=== PATIENT | female | born 1945 | race Caucasian/White ===

== ENCOUNTER → 2021-01-01 18:06 | Outpatient (CLI) | payer MEDICARE, SELFPAY ==
--- NOTE | ~2021-01-01 | XR_ITS ---
EXAMINATION: XR chest 2V DATE: 01/01/2021 18:27 INDICATION: Melanoma of back. TECHNIQUE: Frontal and lateral views of the chest were obtained. COMPARISON: None. FINDINGS: The chest demonstrates clear lungs without pneumonia, pleural effusion, or pneumothorax. Th e heart size is normal. A closure device overlies the heart. IMPRESSION: 1. No acute cardiopulmonary disease. Reviewed, dictated and finalized at location A.
== END ==
PROVIDERS: Visit Provider Surgery
DX: C43.59 Malignant melanoma of other part of trunk (principal)
CPT/HCPCS: 71046

== ENCOUNTER 2025-01-16 11:48 | Outpatient (CLI) | payer MEDICARE, SELFPAY ==
--- NOTE | ~2025-01-16 | XR_ITS ---
EXAM/ PROCEDURE: XR shoulder RT min 2V - 01/16/2025 12:07 CDT HISTORY: 79 years old Female with Chronic right shoulder pain COMPARISON: None available TECHNIQUE: Three view(s) FINDINGS/ IMPRESSION: There are no fractures or dislocations.Joint space narrowing, subchondral sclerosis, subchondral cyst formation and osteophyte formation, compatible with mild osteoarthritis. Reviewed, dictated and finalized at location A.
== END 2025-01-16 11:49 | disposition home or self-care (01) ==
PROVIDERS: Visit Provider Family Medicine
DX: M25.511 Pain in right shoulder (principal); G89.29 Other chronic pain
CPT/HCPCS: 73030

== ENCOUNTER 2025-03-05 12:48 | Outpatient (CLI) | payer MEDICARE, SELFPAY ==
--- NOTE | ~2025-03-05 | XR_ITS ---
EXAMINATION: XR chest 2V, 03/05/2025 14:05 CDT HISTORY: FALL, SEQUELA, fell 2018 heart surgery COMPARISON: No comparisons available. Technique: 2 views obtained. Findings: The lungs are clear, no effusion. No pneumothorax. Heart is normal size. Mediastinal and hilar contours are within normal limits. Bony thorax no acute abnormality. Impression: No acute cardiopulmonary abnormality. Reviewed, dictated and finalized at location P. Impression: No acute cardiopulmonary abnormality.
--- NOTE | ~2025-03-05 | XR_ITS ---
XR thoracic spine 2V Indication: FALL, SEQUELA, fell 2018 heart surgery Comparison: None Findings: Moderate loss of vertebral height, no fracture or subluxation. Moderate loss of disc height throughout. Soft tissues unremarkable Impression: No acute abnormality. Reviewed, dictated and finalized at location P. Impression: No acute abnormality.
--- NOTE | ~2025-03-05 | XR_ITS ---
XR_CERV2-3V_CR Indication: FALL, SEQUELA, fell 2018 heart surgery Comparison: None Findings: Grade 1 anterolisthesis of C3 on C4, no fracture. Severe loss of disc height C4-5 C5-6 and C6-7. Soft tissues unremarkable Impression: No acute abnormality. Reviewed, dictated and finalized at location P. Impression: No acute abnormality.
== END 2025-03-05 12:49 | disposition home or self-care (01) ==
DX: M43.12 Spondylolisthesis, cervical region (principal); M50.021 Cervical disc disorder at C4-C5 level with myelopathy; M50.022 Cervical disc disorder at C5-C6 level with myelopathy; M50.023 Cervical disc disorder at C6-C7 level with myelopathy
CPT/HCPCS: 71046; 72040; 72070

== ENCOUNTER 2025-05-07 09:02 | Outpatient (CLI) | payer MEDICARE, SELFPAY ==
--- NOTE | ~2025-05-07 | XR_ITS ---
EXAMINATION: XR chest 2V, 05/07/2025 9:17 COMMUNITY DEVELOPMENT TECHNICIAN HISTORY: Fall COMPARISON: No comparisons available. Technique: 2 views obtained. Findings: The lungs are clear, no effusion. No pneumothorax. Heart is normal size. Mediastinal and hilar contours are within normal limits. Bony thorax no acute abnormality. Impression: No acute cardiopulmonary abnormality. Reviewed, dictated and finalized at location P. UNITY DEVELOPMENT TECHNICIAN Impression: No acute cardiopulmonary abnormality.
--- NOTE | ~2025-05-07 | XR_ITS ---
EXAMINATION: XR shoulder RT min 2V, 05/07/2025 9:17 PRESCHOOL ASSISTANT PRINCIPAL HISTORY: Chronic R shoulder pain COMPARISON: No comparisons available. Findings: No acute fracture or malalignment. No significant degenerative changes. Soft tissues unremarkable. Impression: No acute fracture or malalignment. Reviewed, dictated and finalized at location P. CHOOL ASSISTANT PRINCIPAL Impression: No acute fracture or malalignment.
--- NOTE | ~2025-05-07 | XR_ITS ---
XR thoracic spine 2V Indication: Fall Comparison: None Findings: The vertebral heights are intact. No fracture or subluxation. The disc heights are intact. Soft tissues unremarkable Impression: No acute abnormality. Reviewed, dictated and finalized at location P. CARRIER AND CLERK Impression: No acute abnormality.
--- NOTE | ~2025-05-07 | XR_ITS ---
XR_CERV2-3V_CR Indication: Fall Comparison: None Findings: Grade 1 anterolisthesis of C3 on C4, no fracture identified. Moderate to severe loss of disc height at C4-5 C5-6 and C6-7. Soft tissues unremarkable Impression: No acute abnormality. Reviewed, dictated and finalized at location P. AL EFFECTS ARTIST Impression: No acute abnormality.
== END 2025-05-07 09:03 | disposition home or self-care (01) ==
DX: M43.12 Spondylolisthesis, cervical region (principal); R29.890 Loss of height; G89.29 Other chronic pain; M25.511 Pain in right shoulder; W19.XXXS Unspecified fall, sequela
CPT/HCPCS: 71046; 72040; 72070; 73030

== ENCOUNTER 2025-05-17 10:40 | Outpatient (CLI) | payer MEDICARE, SELFPAY ==
--- NOTE | ~2025-05-17 | CT_ITS ---
EXAM/PROCEDURE: CT foot RT wo con HISTORY: right foot pain COMPARISON: None available. TECHNIQUE: Right foot CT without contrast FINDINGS: Patient status post tarsometatarsal fusion involving the medial and and middle cuneiform bones, with the bases of the first and second metatarsal bones. No hardware failure, fracture or loosening seen. 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 Claw toe deformity also noted. No drainable fluid collection or suspicious mass seen. No discrete cortical erosion seen to confirm osteomyelitis IMPRESSION: Postsurgical changes in the midfoot, as well as degenerative changes in the midfoot and forefoot. No drainable fluid collection, large mass or gross osteomyelitis. If abscess or osteomyelitis is a clinical concern, correlation with follow-up MRI or alternatively, contrast-enhanced CT of the left foot may provide additional beneficial information.. Reviewed, dictated and finalized at location A. ER MIXER IMPRESSION: Postsurgical changes in the midfoot, as well as degenerative changes in the mid foot and forefoot. No drainable fluid collection, large mass or gross osteomyel itis. If abscess or osteomyelitis is a clinical concern, correlation with follo w-up MRI or alternatively, contrast-enhanced CT of the left foot may provide ad ditional beneficial information..
--- OUTSIDE RECORDS SUMMARY | 2025-05-17 11:49 | XMS_ITS | Clinical Summary ---
Author Organization [facility] Address [address] [place] [id number] Care Team Providers Care Gun Barrel Finisher Name Role Phone Edy Campos MD Primary Care Provider Unavailab le Encounters Date Type Department Care Team Description 03/28/2025 External Device Data ST[facility] ABSTRACTION Provider, Abstract 03/27/2025 External Device Data [facility] ABSTRACTION Provider, Abstract 03/20/2025 External Device Data ST[facility] ABSTRACTION Provider, Abstract from Last 3 Months Social History Tobacco Use Types Packs/Day Years Used Date Smoking Tobacco: Never Assessed Comments Unknown Sex and Gender Information Value Date Recorded Sex Assigned at Not on file Legal Sex Female 4:24 AM ADMINISTRATOR HEALTH CARE FACILITY Gender Identity Not on file Sexual Orientation Not on file Plan of Treatment Health Maintenance Due Date Last Done Comments RSV VACCINE (60+ or ) (1 - 1-dose 75+ series) 2021 INFLUENZA VACCINE (#1) 2024 4, 03/09/2023, 01/29/2023, Additional history exists COVID-19 Vaccine (2024-2 6 season) 2025 03/09/2024, 08/12/2020, 07/22/2020 OSTEOPOROSIS SCREENING 10/30/2027 3, 10/29/2022, 06/24/2015, Additional history exists DTAP/TDAP/TD VACCINES (3 - T d or Tdap) 09/29/2028 09/29/2018, 05/31/2008 PNEUMOCOCCAL VACCINE 50+ YEARS Completed 01/17/2016 , 05/12/2012 ZOSTER VACCINE Completed 06/07/2019, 03/01, 09/29/2018, Additional history exists Insurance MEDICARE PART A AND B [facility] Care Teams Gun Barrel Finisher Relationship Specialty Start Date End Date Edy Campos MD PCP - General 05/16/15
--- OUTSIDE RECORDS SUMMARY | 2025-05-17 11:49 | XMS_ITS | Encounter Summary ---
Author Organization [facility] Health Address [address] [facility] [place] [address] Care Team Providers Care Mink Farmer Name Role Phone Osei Toth MD Unavailable [phone] Himanshu Cook MD Primary Care Provider [phone] Jian Srivastava MD Unavailable [phone] Edy Zavaleta MD Unavailable [phone] Kalie Davis MD Unavailable [phone] Tu Lyman MD Unavailable Sam Garcia MD Unavailable Himanshu Cook MD Primary Care Provider [phone] Reason for Visit * Reason Onset Date Comments General 04/19/2018 Encounter Details Date Type Department Care Team (Late st Contact Info) Description 04/19/2018 Refill [facility] [address] [facility] [address] [place] [address] Himanshu Cook MD [address] OF [facility] [place] [address] General Social History Tobacco Use Types Packs/Day Years Used Date Smoking Tobacco: Never Smokeless Tobacco: Never Alcohol Use Standard Drinks/Week Comments Yes 0.8 (1 standard drink = 0.6 oz p ure alcohol) Comments No Sex and Gender Information Value Date Recorded Sex Assigned at Not on file Legal Sex Female 4:21 AM ASSISTANT TO THE PRESIDENT Gender Identity Not on file Sexual Orientation Not on file documented as of this encounter Miscellaneous Notes * Telephone Encounter - Ophelia Duffy - 04/19/2018 3:47 PM CST Autumn from [facility] pharmacy called CB# [phone] FAX# [phone] This message is in regards to the pt's Votaren The PCP needs to call the NEON Concierge CB# [phone] Pt's ID# [id number] The insurance company would like to know whatever therapy the pt has tried prior to using Voltaren for the PA STANT TO THE PRESIDENT documented in this encounter Plan of Treatment Upcoming Encounters Date Type Department Care Team (Late st Contact Info) Description 07/26/2025 10:30 AM ASSISTANT TO THE PRESIDENT Office Visit [facility] - [facility] [address] [facility] [place] [address] [place] [address] [place] [address] [address] OF [facility] [place] [address] documented as of this encounter Goals Goal Patient Goal Type Associated Problems Recent Progress Patient-Stated? Author Blood Pressure < 140/90 Blood Pressure 146/88(2024 10:03 AM ASSISTANT TO THE PRESIDENT) Deb Padron documented as of this encounter Visit Diagnoses Not on filedocumented in this encounter Care Teams Mink Farmer Relationship Specialty Start Date End Date Himanshu Cook MD [address] [place] [address] PCP - General Internal Medicine 10/08/16 01/18/24 Himanshu Cook MD [address] [facility] [address] [address] PCP - General Internal Medicine 01/19/24 [place] [address] [facility] [address] [place] [address] Obstetrics and Gynecology 11/23/13 Jian Srivastava MD [facility] [place] [address] Physician Cardiovascular Disease 11/23/18 Edy Zavaleta MD [facility] [place] [address] Physician Internal Medicine 11/23/18 Kalie Davis MD [facility] [place] [address] Physician Dermatology 11/23/18 Tu Lyman MD [address] [place] [address] Physician General Surgery 11/23/18 Sam Garcia MD [address] [place] [address] Resident - PCP Internal Medicine 07/17/19 04/15/20 documented as of this encounter
--- OUTSIDE RECORDS SUMMARY | 2025-05-17 11:49 | XMS_ITS | Encounter Summary ---
Author Organization [facility] Address [address] [place] [address] Phone Care Team Providers Care Power Barker Operator Name Role Phone Himanshu Cook MD Primary Care Provider [phone] Encounter Details Date Type Department Care Team (Late st Contact Info) Description 05/05/2018 Telephone [facility] 8th [place] [address] [place] [id number] Romeo Srivastava MD [address] [facility] [address] [place], [place] [id number] Social History Tobacco Use Types Packs/Day Years Used Date Smoking Tobacco: Never Alcohol Use Standard Drinks/Week Comments Yes 0 (1 standard drink = 0.6 oz pur e alcohol) Comments Unknown Sex and Gender Information Value Date Recorded Sex Assigned at Not on file Legal Sex Female 3:33 AM HATCH BOSS Gender Identity Female 09/09/2023 8:36 PM CDT Sexual Orientation Not on file documented as of this encounter Plan of Treatment Not on file documented as of this encounter Visit Diagnoses Not on filedocumented in this encounter Care Teams Power Barker Operator Relationship Specialty Start Date End Date Himanshu Cook MD [address] [place] [address] [place] [address] PCP - General Internal Medicine 04/27/18 documented as of this encounter
--- OUTSIDE RECORDS SUMMARY | 2025-05-17 11:49 | XMS_ITS | Encounter Summary ---
Author Organization [facility] Health Address [address] [facility] [place] [address] Care Team Providers Care Sub Acute Care Nurse Name Role Phone Osei Toth MD Unavailable [phone] Himanshu Cook MD Primary Care Provider [phone] Jian Srivastava MD Unavailable [phone] Edy Zavaleta MD Unavailable [phone] Kalie Davis MD Unavailable [phone] Tu Lyman MD Unavailable Sam Garcia MD Unavailable Himanshu Cook MD Primary Care Provider [phone] Reason for Visit * Reason Onset Date Comments Referral 06/10/2018 Pain management Encounter Details Date Type Department Care Team (Late st Contact Info) Description 06/10/2018 Telephone [facility] [address] [address] Himanshu Cook MD [address] OF [facility] [place] [address] Referral (Pain management ) Social History Tobacco Use Types Packs/Day Years Used Date Smoking Tobacco: Never Smokeless Tobacco: Never Alcohol Use Standard Drinks/Week Comments Yes 0.8 (1 standard drink = 0.6 oz p ure alcohol) Comments No Sex and Gender Information Value Date Recorded Sex Assigned at Not on file Legal Sex Female 4:21 AM SAP CONSULTANT Gender Identity Not on file Sexual Orientation Not on file documented as of this encounter Miscellaneous Notes * Telephone Encounter - Kassidy Esqueda - 06/10/2018 1:10 PM CST Spoke with patient and notified of completed referral to pain management. Patient is requesting that we fax referral to Dr. Clement's office. Attempted to contact office and online states closed on Wednesday. Dr Hannah Clement CB# [phone] Dr. Cook's Message Ordered - please notify pt CONSULTANT * Telephone Encounter - Himanshu Cook MD - 06/10/2018 1:09 PM SAP CONSULTANT Ordered - please notify pt CONSULTANT * Telephone Encounter - Ophelia Duffy - 06/10/2018 8:37 AM CST The pt has been seeing a chiropractor - with little to no results The chiropractor recommended a pain management doctor and the pt needs a referral Dr Hannah Clement # [phone] The pt has not made an appt yet. The pt would appreciate a call back when the referral is completed CONSULTANT documented in this encounter Plan of Treatment Upcoming Encounters Date Type Department Care Team (Late st Contact Info) Description 07/26/2025 10:30 AM SAP CONSULTANT Office Visit [facility] [facility], [place] [id number] Himanshu Cook MD [address] [place] [address] [address] DIV OF [facility] [place] [place] [address] documented as of this encounter Goals Goal Patient Goal Type Associated Problems Recent Progress Patient-Stated? Author Blood Pressure < 140/90 Blood Pressure 146/88(2024 10:03 AM SAP CONSULTANT) Deb Padron documented as of this encounter Visit Diagnoses Diagnosis Chronic pain syndrome- Primary documented in this encounter Care Teams Sub Acute Care Nurse Relationship Specialty Start Date End Date Himanshu Cook MD [address] [place] [address] PCP - General Internal Medicine 10/08/16 01/18/24 Himanshu Cook MD [address] [facility] [address] [facility] [place] [address] PCP - General Internal Medicine 01/19/24 Osei Toth MD [address] [place] [address] Obstetrics and Gynecology 11/23/13 Jian Srivastava MD [address] [place] [address] Physician Cardiovascular Disease 11/23/18 Edy Zavaleta MD [facility] [place] [address] Physician Internal Medicine 11/23/18 Kalie Davis MD [facility] [place] [address] Physician Dermatology 11/23/18 Tu Lyman MD [facility] [place] [address] Physician General Surgery 11/23/18 Sam Garcia MD [facility]5 [place] [address] Resident - PCP Internal Medicine 07/17/19 04/15/20 documented as of this encounter
--- OUTSIDE RECORDS SUMMARY | 2025-05-17 11:49 | XMS_ITS ---
Author Organization [facility] Address [address] [facility] [place] [address] Care Team Providers Care Principal Consulting Engineer Name Role Phone Himanshu Cook MD Primary Care Provider [phone] Active Problems Patient Care Coordination No te Formatting of this note migh t be different from the original. Ms. Enedina Thomas is a 73-year-old with a lung nodule. Patient has a history of patent foramen ovale and is status post closure on 08/22/2018. She was discharged on Plavix for 1 month an aspirin indefinitely. Following her procedure, the patient underwent a chest x-ray which noted a small nodular opacity over the right hemidiaphragm, possibly within the right lower lobe measuring approximately 1 cm in diameter. Patient is refusing any imaging prior to her appointment today. Patient also has a history of melanoma that was excised from her back in 2010. Patient is a never smoker. Patient presents today for further surgical evaluation. Review of systems: Endocrine: Positive for cold intolerance. Musculoskeletal: Positive for muscle aches. Cardiovascular: Positive for hypertension. Respiratory: Positive for shortness of breath with exertion. All other systems were reviewed and are negative. Problem Noted Date Diagnosed Date PFO (patent foramen ovale) 05/08/2021 Overview (05/08/2021): S/p closure 2019 Back pain 07/20/2014 Overview (09/04/2016): Back pain Hyperlipidemia 07/20/2014 Overview (09/04/2016): Hyperlipidemia Hypertension 07/20/2014 Overview (09/04/2016): Hypertension Malignant melanoma 07/20/2014 Overview (09/04/2016): Malignant melanoma Current Treatment and Therapy Plans No current plan information found. Past Treatment and Therapy Plans No past plan information found. Lifetime Dose Tracking * Chemical Lifetime Dose Automatic Entry Manual Entr y Fluoro Time 11.6 minutes 0 minutes 11.6 minutes Air kerma at the reference point (Ka,r) 96 mGy 0 mGy 96 mGy DLP 77 mGycm 77 mGycm 0 mGycm DAP 20.5 Gy-cm2 0 Gy-cm2 20.5 Gy-cm2
--- OUTSIDE RECORDS SUMMARY | 2025-05-17 11:49 | XMS_ITS | Clinical Summary ---
Author Organization [facility] Address [address] [place] [address] Care Team Providers Care Rehabilitation Services Aide Name Role Phone Himanshu Cook MD Primary Care Provider [phone] Allergies Active Allergy Reactions Criticality Noted Date Comments Ibuprofen Other (See comments) Low 04/27/2018 Bun level not allergy Naproxen Other (See comments) Low 04/27/2018 Bun level Aspirin Other (See comments) Low 04/27/2018 Not good for bun level Levofloxacin Other (See comments) Low 04/27/2018 Pt felt off Medications cholecalciferol (VITAMIN D-3) 2,000 unit tablet Take 1 tablet (2,000 Units total) by mouth daily Active loratadine (CLARITIN) 10 mg tablet Take 1 tablet (10 mg total) by mouth daily Active valACYclovir (VALTREX) 500 mg tablet Take 1 tablet (500 mg total) by mouth daily as needed 0 9 Active peg 400-propylene glycol (SYSTANE GEL) 0.4-0.3 % ophthalmic gel Administer 2 drops into both eyes daily Active amLODIPine (NORVASC) 2.5 mg tablet Take 1 tablet (2.5 mg total) by mouth daily 90 tablet 3 5 03/16/20 26 Active pravastatin (PRAVACHOL) 80 mg tablet Take 1 tablet (80 mg total) by mouth daily 90 tablet 3 5 03/16/20 26 Active aspirin 81 mg enteric coated tablet Take 1 tablet (81 mg total) by mouth daily 90 tablet 3 5 03/19/20 26 Active losartan (COZAAR) 50 mg tablet Take 1 tablet (50 mg total) by mouth daily Active calcium carbonate (CALCIUM 600 ORAL) Take 600 capsules by mouth daily Active biotin 10,000 mcg capsule Take 1 capsule (10,000 mcg total) by mouth daily Active valACYclovir (VALTREX) 1 gram tablet TAKE 2 TABLETS BY MOUTH EVERY 12 HOURS FOR 2 DOSES. 5 Active Hospital, Clinic, or Other Facility Administered Medication Ordered Dose Route Frequency Start Date End Date Status perflutren protein-a (OPTISON) 3 mL in sodium chloride 0.9% 8 mL syringe 1 - 8 mL IV Once in imaging 11/27/2022 Active Active Problems Patient Care Coordination No te [...] Malignant melanoma 07/20/2014 Overview (09/04/2016): Malignant melanoma Encounters Date Type Department Care Team Description 05/01/2025 Orders Only [facility] Orthopaedic Surgery [address] [place] [address] 2nd Floor [address] [place] [address] Helga Garcia RN Right foot pain (Primary Dx) 04/30/2025 11:35 AM BRICK CHIMNEY BUILDER - 04/30/2025 11:59 PM BRICK CHIMNEY BUILDER Hospital Encounter [facility] Radiology at [facility] [address] [place] [address] Right foot pain Discharge Disposition: Discharge to home or self care 04/30/2025 11:30 AM BRICK CHIMNEY BUILDER Office Visit [facility] Orthopaedic Surgery [address] [place] [address] 2nd [address] [place] [phone] Wilber Murray MD Chronic midline back pain, unspecified back location (Primary Dx); Right foot pain 04/13/2025 Orders Only [facility] Orthopaedic Surgery [address] [place] [address] Floor [address] [place] [phone] Helga Garcia RN Right foot pain (Primary Dx) 04/11/2025 Telephone [facility] Cardiology [address] [facility] Advanced Medicine 8th [place] [address] [place] [address] Em Costello MD 03/20/2025 Results Follow-Up [facility] Medicine Cardiology [address] [facility] Advanced [facility] 8th [place] [address] [place] [address] Em Costello MD ECG 12 lead 03/16/2025 10:15 AM CDT Office Visit [facility] Medicine Cardiology [address] [facility] [address] [place] [address] Em Costello MD Essential (primary) hypertension (Primary Dx); Diastolic dysfunction; Mixed hyperlipidemia; History of surgical closure of patent foramen ovale (PFO) from Last 3 Months Surgical History Surgery Date Site/Laterality Comments OTHER SURGICAL HISTORY Two lymph nodes removed MELANOMA RESECTION DILATION AND CURETTAGE OF UTERUS Medical History Medical History Date Comments Hyperlipidemia Hypertension Cancer (HCC) melanoma PFO with atrial septal aneurysm Bronchitis Family History Medical History Relation Name Comments Stroke Brother Sudden Cardiac Brother Atrial fibrillation Daughter Other Father Parkinson's dis ease,dementia; Cause of : Parkinson's disease,dementia Stroke Father Other Maternal Grandfather unknow- ; Cause of : unknow- Coronary artery disease Mother Heart attack Mother Heart failure Mother Hypertension Mother Lung disease Mother Other Mother idiopathic pulm onary fibrosis,conjestive heart failure; Cause of : idiopathic pulmonary fibrosis,conjestive heart failure Heart attack Son Hyperlipidemia Son Hypertension Son Other Son Hypertension,hy perlipidemia; Relation Name Status Comments Brother Daughter Father (Age 92) Maternal Grandfather Mother (Age 87) Son Social History Tobacco Use Types Packs/Day Years Used Date Smoking Tobacco: Never Smokeless Tobacco: Never Alcohol Use Standard Drinks/Week Comments Yes 2 (1 standard drink = 0.6 oz pur e alcohol) Comments Unknown Sex and Gender Information Value Date Recorded Sex Assigned at Not on file Legal Sex Female 3:33 AM BRICK CHIMNEY BUILDER Gender Identity Female 09/09/2023 8:36 PM CDT Sexual Orientation Not on file Last Filed Vital Signs Vital Sign Reading Time Taken Comments Blood Pressure 114/79 03/16/2025 10:15 AM CDT Pulse 88 03/16/2025 10:15 AM CDT Temperature 36.5 C (97.7 F) 03/16/2025 10:15 AM CDT Respiratory Rate 18 08/30/2018 10:20 AM CDT Oxygen Saturation 96% 03/16/2025 10:15 AM CDT Inhaled Oxygen Concentration - - Weight 71.2 kg (157 lb) 04/30/2025 12:10 PM BRICK CHIMNEY BUILDER Height 162.6 cm (5' 4) 04/30/2025 12:10 PM BRICK CHIMNEY BUILDER Body Mass Index 26.95 04/30/2025 12:10 PM BRICK CHIMNEY BUILDER Plan of Treatment Health Maintenance Due Date Last Done Comments Depression Screening 1946 Fall Risk Assessment 1945 Hepatitis C Screening 1945 Hepatitis B Screening 1964 Well Visit 65+ 2011 Osteoporosis Screening-Bone Density Scan 10/29/2024 10/29/2022, 10/29/2022 DTaP/Tdap/Td Vaccine (3 - Td or Tdap) 09/29/2028 09/29/2018, 05/31/2008 Pneumococcal vaccine 65+ Completed 01/17/2016, 04/30 Zoster Vaccine Completed 06/07/2019, 03/01, 09/29/2018, Additional history exists Breast Cancer Screening-Mammogram Discontinued 025, 08/10/2023 Influenza Vaccine Completed 04/02/2025, , 03/10/2023, Additional history exists Medical Devices Implanted Type Area Photographic Machine Operator Device Identifier Shelf Expiration Date Model / Serial / Lot [employer] [id number] Christine 25mm Soft Wire Frame Fluoroscopic Image Septal Occluder - [id number] - [id number] Implanted:Qty: 1 on 08/22/2018 by Edy Zavaleta MD PhD at [facility] Other - see comments [employer] 12/20/2019 [id number] / [id number] / [id number] Description:PFO closure Procedures Procedure Name Priority Date/Time Associated Diagnosis Comments XR FOOT RIGHT 3 OR MORE VIEWS Schedule Routine, Read Routine (OP Routine) 04/30/2025 11:46 AM BRICK CHIMNEY BUILDER Right foot pain ECG 12-LEAD Routine 03/16/2025 Essential (primary) hypertension from Last 3 Months Results * XR Foot Right 3 or More Views (04/30/2025 11:46 AM BRICK CHIMNEY BUILDER) Anatomical Region Laterality Modality Lower Extremities, Foot Right Computed Radiography 04/30/2025 2:54 PM BRICK CHIMNEY BUILDER Impressions 04/30/2025 5:15 PM BRICK CHIMNEY BUILDER 1. Postsurgical changes of an attempted right midfoot arthrodesis with intact instrumentation. Dictated by: Juve Ding M.D. The radiology attending physician has personally reviewed this study, and had reviewed and/or edited this written report and agrees with it. Electronically signed by: Bridget Kim MD Narrative 04/30/2025 5:15 PM BRICK CHIMNEY BUILDER EXAMINATION: XR FOOT RIGHT 3 OR MORE VIEWS HISTORY: Right Foot Pain COMPARISON: No prior images are available for comparison. FINDINGS: 3 radiographs of the right foot are submitted for interpretation. Postsurgical changes of a right first digit tarsometatarsal joint arthrodesis with a dorsal plate and screw construct. Postsurgical changes of a second digit tarsometatarsal joint staple arthrodesis. Headless screw fixation of the medial and intermediate cuneiform bones. There is no evidence of fusion of the instrumentation joints. The instrumentation is intact. No evidence of periprosthetic fracture or lucency. Normal alignment. No acute fracture or dislocation. 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 Pes planus valgus. Small plantar calcaneal spur. Small distal Achilles enthesophyte. Procedure Note Laura Kim MD - 04/30/2025 EXAMINATION: XR FOOT RIGHT 3 OR MORE VIEWS HISTORY: Right Foot Pain COMPARISON: No prior images are available for comparison. FINDINGS: 3 radiographs of the right foot are submitted for interpretation. Postsurgical changes of a right first digit tarsometatarsal joint arthrodesis with a dorsal plate and screw construct. Postsurgical changes of a second digit tarsometatarsal joint staple arthrodesis. Headless screw fixation of the medial and intermediate cuneiform bones. There is no evidence of fusion of the instrumentation joints. The instrumentation is intact. No evidence of periprosthetic fracture or lucency. Normal alignment. No acute fracture or dislocation. 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 Pes planus valgus. Small plantar calcaneal spur. Small distal Achilles enthesophyte. IMPRESSION: 1. Postsurgical changes of an attempted right midfoot arthrodesis with intact instrumentation. Dictated by: Juve Ding M.D. The radiology attending physician has personally reviewed this study, and had reviewed and/or edited this written report and agrees with it. Electronically signed by: Bridget Kim MD us Wilber Murray MD IMG XR PROCEDURES Olga l Result * ECG 12 lead (03/16/2025) 03/16/2025 us Em Costello MD ECG ORDERABLES Final R esult from Last 3 Months Insurance MEDICARE BLUE CROSS MEDICARE SUPPLEMENT [facility] MEDICARE MEDICARE [facility] MEDICARE BLUE CROSS MEDICARE SUPPLEMENT Advance Directives For more information, please contact: [phone] * Full Code (Latest Code Status on File) Date Activated Date Inactivated Comments 08/22/2018 10:04 AM 08/22/2018 8:36 PM Care Teams Rehabilitation Services Aide Relationship Specialty Start Date End Date Himanshu Cook MD [address] [address] PCP - General Internal Medicine 04/27/18
--- OUTSIDE RECORDS SUMMARY | 2025-05-17 11:49 | XMS_ITS | Encounter Summary ---
Author Organization [facility] Health Address [address] [place] [address] Care Team Providers Care City Clerk Name Role Phone Osei Toth MD Unavailable Himanshu Cook MD Primary Care Provider [phone] Jian Srivastava MD Unavailable Edy Zavaleta MD Unavailable [phone] Kalie Davis MD Unavailable Tu Lyman MD Unavailable Sam Garcia MD Unavailable Himanshu Cook MD Primary Care Provider [phone] Reason for Visit * Reason Onset Date Comments Question 08/11/2019 Encounter Details Date Type Department Care Team (Late st Contact Info) Description 08/11/2019 Telephone [facility] General Internal Medicine [address] [facility] [address] [place] [address] Himanshu Cook MD [address] OF [facility] [place] [address] Question Social History Tobacco Use Types Packs/Day Years Used Date Smoking Tobacco: Never Smokeless Tobacco: Never Alcohol Use Standard Drinks/Week Comments Yes 0.8 (1 standard drink = 0.6 oz p ure alcohol) Comments No Sex and Gender Information Value Date Recorded Sex Assigned at Not on file Legal Sex Female 4:21 AM SECOND WORKER Gender Identity Not on file Sexual Orientation Not on file documented as of this encounter Miscellaneous Notes * Telephone Encounter - Aubree Hurt RN - 08/11/2019 1:03 PM CDT Patient in [place] flying home tomorrow She is supposed to work [employer] Wednesday and is questioning if she should do this. Also see copied message from [employer] to Dr Cook Good morning Another question. I did not cancel my trip and I am in [place] - I connected thru [employer] to get here. [facility] [place] coming home Wednesday. I am scheduled to work at the [employer] Wednesday. Youradvice please as to whether or not I should. Pneumonia a few weeks ago, history of respiratory issues including legionnaires, heart surgery, melanoma. I have been around a lot of international travelers here, and I am 74. What do you think - work or not? Concerned for me, as well as the voters, coming in - lots of shuffling of papers by multiple hands. Thanks. Enedina Please advise [phone] documented in this encounter Plan of Treatment Upcoming Encounters Date Type Department Care Team (Late st Contact Info) Description 07/26/2025 10:30 AM SECOND WORKER Office Visit [facility] - Internal Med [facility] [facility], [place] [phone] Himanshu Cook MD [address] [place] [address] [address] DIV OF [facility] [place] [address] documented as of this encounter Goals Goal Patient Goal Type Associated Problems Recent Progress Patient-Stated? Author Blood Pressure < 140/90 Blood Pressure 146/88(2024 10:03 AM SECOND WORKER) No Deb Orantes documented as of this encounter Visit Diagnoses Not on filedocumented in this encounter Care Teams City Clerk Relationship Specialty Start Date End Date Himanshu Cook MD [address] [place] [address] PCP - General Internal Medicine 10/08/16 01/18/24 Himanshu Cook MD [address] OF [facility] [place] [address] PCP - General Internal Medicine 01/19/24 [place] [address] [facility] [address] [place] [address] Obstetrics and Gynecology 11/23/13 Jian Srivastava MD [facility] [place] [address] Physician Cardiovascular Disease 11/23/18 Edy Zavaleta MD [address] [place] [address] Physician Internal Medicine 11/23/18 Kalie Davis MD [facility] [place] [address] Physician Dermatology 11/23/18 Tu Lyman MD [address] [place] [address] Physician General Surgery 11/23/18 Sam Garcia MD [address] [place] [address] Resident - PCP Internal Medicine 07/17/19 04/15/20 documented as of this encounter
--- OUTSIDE RECORDS SUMMARY | 2025-05-17 11:49 | XMS_ITS | Patient Health Record ---
Author Organization [facility] Address [address] [place] [address] Support Name Relationship Address Phone CLAUDIA YADAV Guarantor Unknown [phone] Reason For Referral No Information Plan Of Treatment No Information Insurance Providers Payer Name Payer Address Payer Phone Subscriber Number Group Number Insured Name Patient Relationship to Insured Coverage Start Date Coverage End Date BLUE CROSS ACCESS TRADITIONAL [address] [place] [address] [id number] CLAUDIA YADAV Self - patient is the insured
--- OUTSIDE RECORDS SUMMARY | 2025-05-17 11:49 | XMS_ITS | Encounter Summary ---
Author Organization [facility] Address [address] [place] [address] Care Team Providers Care Financial Processing Clerk Name Role Phone Osei Toth MD Unavailable [phone] Himanshu Cook MD Primary Care Provider [phone] Jian Srivastava MD Unavailable [phone] Edy Zavaleta MD Unavailable [phone] Kalie Davis MD Unavailable [phone] Tu Lyman MD Unavailable Himanshu Cook MD Primary Care Provider [phone] Encounter Details Date Type Department Care Team (Late st Contact [facility]) Description 01/01/2021 Telephone [facility] General Internal Medicine [address] [place] [address], [place] [address] Himanshu Cook MD [address] [place] [address] 2L DIV OF GEN INTERNAL MEDICINE [place], [place] [id number] Social History Tobacco Use Types Packs/Day Years Used Date Smoking Tobacco: Never Smokeless Tobacco: Never Alcohol Use Standard Drinks/Week Comments Yes 2 (1 standard drink = 0.6 oz pur e alcohol) Comments No Sex and Gender Information Value Date Recorded Sex Assigned at Not on file Legal Sex Female 4:21 AM WEBSPHERE PORTAL ARCHITECT Gender Identity Not on file Sexual Orientation Not on file COVID-19 Exposure Response Date Recorded In the last month, have you been in contact with someone who was confirmed or suspected to have Coronavirus / COVID-19? No / Unsure 12/03/2020 11:05 AM CDT documented as of this encounter Patient Instructions * Patient Instructions* Nick Ferro - 01/01/2021 8:05 AM CDT Patient called in to [facility] this morning in regards to a medication refill. Patient is asking for Dr. Cook to refill her atorvastatin medication. Patient stated that her pharmacy sent something through in regards to her needing a medication refill on Wednesday and is asking for this message to be sent to the office today. Patient's callback number is [phone]. documented in this encounter Miscellaneous Notes * Telephone Encounter - Chantal Joiner RN - 01/01/2021 8:19 AM CDT Refill Request Enedina Thomas DANIEL: 08/15/20 NOV scheduled: 02/18/2021 LRF: 01/09/20 Qty Disp: 90 # of refills: 3 Allergies: Allergies Allergen Reactions ??? Levaquin [Levofloxacin] BACK HOE OPERATOR Dysfunction ??? Aspirin Palpitations Not good for bun level ??? Ibuprofen Palpitations Not good for bun level ??? Naproxen Palpitations Not good for bun level Pended Medication Order: Requested Prescriptions Pending Prescriptions Disp Refills ??? atorvastatin (LIPITOR) 20 MG tablet 90 tablet 3 Sig: Take 1 (one) tablet by mouth once daily documented in this encounter Plan of Treatment Upcoming Encounters Date Type Department Care Team (Late st Contact Info) Description 07/26/2025 10:30 AM WEBSPHERE PORTAL ARCHITECT Office Visit [facility] - Internal Med [address] [place] [address], [place] [address] Himanshu Cook MD [address] [place] [address] documented as of this encounter Goals Goal Patient Goal Type Associated Problems Recent Progress Patient-Stated? Author Blood Pressure < 140/90 Blood Pressure 146/88(2024 10:03 AM WEBSPHERE PORTAL ARCHITECT) Deb Padron documented as of this encounter Visit Diagnoses Not on filedocumented in this encounter Care Teams Financial Processing Clerk Relationship Specialty Start Date End Date Himanshu Cook MD [address] [place] [address] PCP - General Internal Medicine 10/08/16 01/18/24 Himanshu Cook MD [address] [place] [address] PCP - General Internal Medicine 01/19/24 Osei Toth MD [address] [place] [address] Obstetrics and Gynecology 11/23/13 Jian Srivastava MD [address] [place] [address] Physician Cardiovascular Disease 11/23/18 Edy Zavaleta MD [address] [place] [address] Physician Internal Medicine 11/23/18 Kalie Davis MD [address] [place] [address] Physician Dermatology 11/23/18 Tu Lyman MD [address] [place] [address] Physician General Surgery 11/23/18 documented as of this encounter
--- OUTSIDE RECORDS SUMMARY | 2025-05-17 11:49 | XMS_ITS | Encounter Summary ---
Author Organization [facility] Health Address [address] [facility] [place] [address] Care Team Providers Care Machine Operator Cane Cutter Name Role Phone Osei Toth MD Unavailable [phone] Himanshu Cook MD Primary Care Provider [phone] Jian Srivastava MD Unavailable [phone] Edy Zavaleta MD Unavailable [phone] Kalie Davis MD Unavailable [phone] Tu Lyman MD Unavailable Sam Garcia MD Unavailable Himanshu Cook MD Primary Care Provider [phone] Reason for Visit * Reason Onset Date Comments Pain Back 06/22/2018 patient request medication for long flight Encounter Details Date Type Department Care Team (Late st Contact Info) Description 06/22/2018 Telephone [facility] General Internal Medicine [address] [facility] [address] [place], [place] [id number] Himanshu Cook MD [address] OF [facility] [place] [address] Pain Back (patient request medication for long flight) Social History Tobacco Use Types Packs/Day Years Used Date Smoking Tobacco: Never Smokeless Tobacco: Never Alcohol Use Standard Drinks/Week Comments Yes 0.8 (1 standard drink = 0.6 oz p ure alcohol) Comments No Sex and Gender Information Value Date Recorded Sex Assigned at Not on file Legal Sex Female 4:21 AM AUTOMATIC CHIEF Gender Identity Not on file Sexual Orientation Not on file documented as of this encounter Miscellaneous Notes * Telephone Encounter - Robbin Jayleen - 06/22/2018 12:42 PM CST Patient calling in to follow up on recent Citt[place]ino message. Patient going on long flight calling in for medication for pain. Putting details in under med refill request. My chart message As you know, a constant concern on my back and now my upper left arm. ??I am waiting on a call backfrom the pain management doctor for an appointment. Would you please call in some kind of prescription for me that will alleviate some of the pain and relax the muscles that I can take on Wednesday for the flight to [place], then onto [place], and then use on the flights back home. ??If it will help me relax me and not affect my heart - on these flights. ??I am not looking for something to take 21/12 while vacationing unless the back is causing a lot of pain or that will knock me out. I plan on wearing compression socks on the flight and getting up and moving every hour. Thank you for all your responses to my notes. ??I know they have been a lot, but I am scared about having a stroke and this ongoing struggle with back and now the arm pain is starting to take its toll. Thank you . Enedina [phone] (cell) MATIC CHIEF documented in this encounter Plan of Treatment Upcoming Encounters Date Type Department Care Team (Late st Contact Info) Description 07/26/2025 10:30 AM AUTOMATIC CHIEF Office Visit [facility] - Internal Med [address] [place] [address], [place] [address] Himanshu Cook MD [address] [place] [address] DIV OF [facility] [place] [address] documented as of this encounter Goals Goal Patient Goal Type Associated Problems Recent Progress Patient-Stated? Author Blood Pressure < 140/90 Blood Pressure 146/88(2024 10:03 AM AUTOMATIC CHIEF) Deb Padron documented as of this encounter Visit Diagnoses Not on filedocumented in this encounter Care Teams Machine Operator Cane Cutter Relationship Specialty Start Date End Date Himanshu Cook MD [address] [place] [address] PCP - General Internal Medicine 10/08/16 01/18/24 Himanshu Cook MD [address] [facility] 2L [facility] OF GEN [place] [address] PCP - General Internal Medicine 01/19/24 Osei Toth MD [address] [place] [address] Obstetrics and Gynecology 11/23/13 Jian Srivastava MD [address] [place] [address] Physician Cardiovascular Disease 11/23/18 Edy Zavaleta MD [address] [place] [address] Physician Internal Medicine 11/23/18 Kalie Davis MD [facility] [place] [address] Physician Dermatology 11/23/18 Tu Lyman MD [facility] [place] [address] Physician General Surgery 11/23/18 Sam Garcia MD [address] [place] [address] Resident - PCP Internal Medicine 07/17/19 04/15/20 documented as of this encounter
--- OUTSIDE RECORDS SUMMARY | 2025-05-17 11:49 | XMS_ITS | Encounter Summary ---
Author Organization [facility] Health Address [address] [place] [address] Care Team Providers Care Credit Underwriter Name Role Phone Kaveh Washburn MD Primary Care Provider [phone] Osei Toth MD Unavailable [phone] Juan Panchal MD Primary Care Provider Himanshu Cook MD Primary Care Provider [phone] Jian Srivastava MD Unavailable [phone] Edy Zavaleta MD Unavailable [phone] Kalie Davis MD Unavailable Tu Lyman MD Unavailable Sam Garcia MD Unavailable Himanshu Cook MD Primary Care Provider [phone] Encounter Details Date Type Department Care Team (Late st Contact Info) Description 02/12/2014 [facility] Outpatient Visit EXTERNAL NON-[facility] DEPT Dagmar Powers DPM [address] [place] [address] Social History Tobacco Use Types Packs/Day Years Used Date Smoking Tobacco: Never Smokeless Tobacco: Never Alcohol Use Standard Drinks/Week Comments Yes 0.8 (1 standard drink = 0.6 oz p ure alcohol) Comments No Sex and Gender Information Value Date Recorded Sex Assigned at Not on file Legal Sex Female 4:21 AM ONLINE MARKETING COORDINATOR Gender Identity Not on file Sexual Orientation Not on file documented as of this encounter Plan of Treatment Upcoming Encounters Date Type Department Care Team (Late st Contact Info) Description 07/26/2025 10:30 AM ONLINE MARKETING COORDINATOR Office Visit [facility] - Internal Med [address] [facility], [place] [address] Himanshu Cook MD [address] [facility] 2L DIV OF [facility] [place] [address] documented as of this encounter Goals Goal Patient Goal Type Associated Problems Recent Progress Patient-Stated? Author Blood Pressure < 140/90 Blood Pressure 146/88(2024 10:03 AM ONLINE MARKETING COORDINATOR) No Deb Orantes documented as of this encounter Visit Diagnoses Not on filedocumented in this encounter Care Teams Credit Underwriter Relationship Specialty Start Date End Date Kaveh Washburn MD [address] [place] [address] PCP - General Family Medicine 12/16/11 04/08/15 Juan Panchal MD [address] [place] [address] PCP - General Internal Medicine 04/09/15 10/07/16 Himanshu Cook MD [address] [place] [address] PCP - General Internal Medicine 10/08/16 01/18/24 Himanshu Cook MD [address] [facility] 2L DIV OF [facility] [place] [address] PCP - General Internal Medicine 01/19/24 [place] [address] [facility] [address] [place] [address] Obstetrics and Gynecology 11/23/13 Jian Srivastava MD [facility] [place] [address] Physician Cardiovascular Disease 11/23/18 Edy Zavaleta MD [address] [place] [address] Physician Internal Medicine 11/23/18 Kalie Davis MD [facility] [place] [address] Physician Dermatology 11/23/18 Tu Lyman MD [address] [place] [address] Physician General Surgery 11/23/18 Sam Garcia MD [address] [place] [address] Resident - PCP Internal Medicine 07/17/19 04/15/20 documented as of this encounter
--- OUTSIDE RECORDS SUMMARY | 2025-05-17 11:49 | XMS_ITS | Encounter Summary ---
Author Organization [facility] Address [address] [place] [address] Phone Care Team Providers Care Spanish Lecturer Name Role Phone Himanshu Cook MD Primary Care Provider [phone] Encounter Details Date Type Department Care Team (Late st Contact Info) Description 03/20/2025 Results Follow-Up [facility] Medicine Cardiology [address] [facility] Medicine 8th [place] [address] [place] [address] Em Costello MD [address] [place], [place] [id number] ECG 12 lead Social History Tobacco Use Types Packs/Day Years Used Date Smoking Tobacco: Never Smokeless Tobacco: Never Alcohol Use Standard Drinks/Week Comments Yes 2 (1 standard drink = 0.6 oz pur e alcohol) Comments Unknown Sex and Gender Information Value Date Recorded Sex Assigned at Not on file Legal Sex Female 3:33 AM GRAPHITE GRINDER Gender Identity Female 09/09/2023 8:36 PM CDT Sexual Orientation Not on file documented as of this encounter Plan of Treatment Not on file documented as of this encounter Visit Diagnoses Not on filedocumented in this encounter Care Teams Spanish Lecturer Relationship Specialty Start Date End Date Himanshu Cook MD [address] [place], [place] [id number] PCP - General Internal Medicine 04/27/18 documented as of this encounter
--- OUTSIDE RECORDS SUMMARY | 2025-05-17 11:49 | XMS_ITS | Encounter Summary ---
Author Organization [facility] Health Address [address] [place] [address] Care Team Providers Care Botanical Technical Officer Name Role Phone Kaveh Washburn MD Primary Care Provider [phone] Osei Toth MD Unavailable [phone] Juan Panchal MD Primary Care Provider [phone] Himanshu Cook MD Primary Care Provider [phone] Jian Srivastava MD Unavailable [phone] Edy Zavaleta MD Unavailable [phone] Kalie Davis MD Unavailable Tu Lyman MD Unavailable Sam Garcia MD Unavailable Himanshu Cook MD Primary Care Provider [phone] Encounter Details Date Type Department Care Team (Late st Contact Info) Description 11/28/2013 [facility] Outpatient Visit EXTERNAL [facility] DEPT Dagmar Powers DPM [address] [place] [address] Social History Tobacco Use Types Packs/Day Years Used Date Smoking Tobacco: Never Smokeless Tobacco: Never Alcohol Use Standard Drinks/Week Comments Yes 0.8 (1 standard drink = 0.6 oz p ure alcohol) Comments No Sex and Gender Information Value Date Recorded Sex Assigned at Not on file Legal Sex Female 4:21 AM HEALTHCARE INTERPRETER Gender Identity Not on file Sexual Orientation Not on file documented as of this encounter Plan of Treatment Upcoming Encounters Date Type Department Care Team (Late st Contact Info) Description 07/26/2025 10:30 AM HEALTHCARE INTERPRETER Office Visit [facility] - Internal Med [address] [facility] [place] [address] Himanshu Cook MD [address] [facility] [address] DIV OF [facility] [place] [address] documented as of this encounter Goals Goal Patient Goal Type Associated Problems Recent Progress Patient-Stated? Author Blood Pressure < 140/90 Blood Pressure 146/88(2024 10:03 AM HEALTHCARE INTERPRETER) No Deb Orantes documented as of this encounter Visit Diagnoses Not on filedocumented in this encounter Care Teams Botanical Technical Officer Relationship Specialty Start Date End Date Kaveh Washburn MD [address] [place] [address] PCP - General Family Medicine 12/16/11 04/08/15 Juan Panchal MD [address] [place] [address] PCP - General Internal Medicine 04/09/15 10/07/16 Himanshu Cook MD [address] [place] [address] PCP - General Internal Medicine 10/08/16 01/18/24 Himanshu Cook MD [address] [facility] [address] DIV OF [facility] [place] [address] PCP - General Internal Medicine 01/19/24 [place] [address] [facility] [address] [place] [address] Obstetrics and Gynecology 11/23/13 Jian Srivastava MD [facility] [place] [address] Physician Cardiovascular Disease 11/23/18 Edy Zavaleta MD [address] [place] [address] Physician Internal Medicine 11/23/18 Kalie Davis MD [facility] [place] [address] Physician Dermatology 11/23/18 Tu Lyman MD [address] [place] [address] Physician General Surgery 11/23/18 Sam Garcia MD [address] [place] [address] Resident - PCP Internal Medicine 07/17/19 04/15/20 documented as of this encounter
--- OUTSIDE RECORDS SUMMARY | 2025-05-17 11:50 | XMS_ITS | Patient Health Record ---
Author Organization [facility], Address [address] [place] [address] Care Team Providers Care Curator Herbarium Name Role Phone Himanshu Cook Primary Care Provider Sebastien Santana Unavailable [phone] Kishan Vaz Unavailable Unavailable Allergies Allergen (clinical drug ingredient) Drug/Non Drug Allergy documented on EMR Reaction Allergy Type Onset Date Status Levaquin disoriented, did not feel right Drug Allergy Active Reason For Referral No Information Medications Medication SIG (Take, Route, Fr equency, Duration) Notes Start Date End Date Status Vitamin D Active Airborne Active Voltaren Active Triamterene-HCTZ Act dede Montelukast Sodium A ctive Systane Active Claritin Active Losartan Potassium A ctive Biofreeze Active Cyclobenzaprine HCl Active Aspir-81 Active Valtrex Active Atorvastatin Calcium Active Social History Section Notes: She is a nonsmoker. She drinks 1 or 2 alcoholic drinks per week. She denies history of drug or chemical abuse. She is and lives at home with a healthy . She achieved 2 years of college. She is retired in May of 2004. General state of health is fair. She is 5 feet 4 inches, 173 pounds. Plan Of Treatment No Information Insurance Providers Payer Name Payer Address Payer Phone Subscriber Number Group Number Insured Name Patient Relationship to Insured Coverage Start Date Coverage End Date Medicare [place] [address] [address] [place] [phone] [id number] Enedina Thomas Self - patient is the insured [facility] Mo [address] [place] [address] [phone] [id number] Plan F Enedina Thomas Self - patient is the insured Medical (General) History Medical History History ICD Code Hypertension Shortness of breath Anemia as a child Melanoma Denies h/o emotional/psychiatric disorde r Denies h/o drug/chemical dependency Chronic back pain Cardiac defect Surgical History Surgery Date(Month/Year) D&C 03/1987 Melanoma 11/2010
--- OUTSIDE RECORDS SUMMARY | 2025-05-17 11:50 | XMS_ITS | Clinical Summary ---
Author Organization [facility] Address [address] [place] [address] Care Team Providers Care Car Sales Associate Name Role Phone Osei Toth MD Unavailable [phone] Jian Srivastava MD Unavailable [phone] Edy Zavaleta MD Unavailable [phone] Kalie Davis MD Unavailable Tu Lyman MD Unavailable Himanshu Cook MD Primary Care Provider [phone] [facility],non-owned Affiliates and Associated Physician Practices is amultiple site organization consisting of ambulatory clinics and hospital sitesin [place], [place], [place] and [place]. This disclosure is being madepursuant to the Care Everywhere program and may not contain all information available regarding this patient. Last updated 18.[facility] Allergies Active Allergy Reactions Criticality Noted Date Comments Cephalexin Diarrhea,Other 02/05/2025 Loose stools, lethargy reported by pt Medications * Be aware that medications may not be up to date on this document. Alwaysverify current medications with the patient. Propylene Glycol (SYSTANE COMPLETE OP) 2 drops by Ophthalmic route 2 times daily Active loratadine (CLARITIN) 10 MG tablet Take 1 (one) tablet by mouth once daily 12/14/202 0 Active Cholecalciferol 50 MCG (1999 UT) Take 2.5 (two and one-half) tablets by mouth once daily 0 Active Other Take 10,000 mg by mouth once daily Biotin Active calcium carbonate (Caltrate) 600 MG tablet Take 1 (one) tablet by mouth daily with food Active Other 2,000 Units Vitamin d3 Active amLODIPine (Norvasc) 5 MG tablet Take 1 (one) tablet by mouth once daily 30 tablet 11 5 08/16/19 26 Active Additional Information Patient not taking.Reported on 04/30/2025 losartan (Cozaar) 50 MG tablet Take 1 (one) tablet by mouth once daily 90 tablet 3 5 Active diclofenac 2 % - gabapentin 6 % - ketamine 5 % - lidocaine 5 % cream compoundIndicati ons:Chronic left shoulder pain,Periscapula r pain of left shoulder,Chronic periscapular pain on left side,Paraspinal muscle spasm Apply to affected area as directed 4 g 5 Active atorvastatin (Lipitor) 20 MG tablet Take 1 (one) tablet by mouth once daily 90 tablet 3 5 Active Additional Information Patient not taking.Reported on 04/30/2025 lidocaine (Lidoderm) 5 % patchIndications :Acute chest wall pain Apply 1 (one) patch to skin once daily Apply patch to most painful area and remove after 12 hours. May reapply a new patch 12 hours later. 30 patch 5 Active Additional Information Patient not taking.Reported on 04/30/2025 methocarbamol (Robaxin) 500 MG tablet Take 1 (one) tablet by mouth every 8 hours as needed for Muscle Spasms 30 tablet 5 Active aspirin EC (Ecotrin) 81 MG tablet Take 1 (one) tablet by mouth once daily 5 03/19/20 Active pravastatin (Pravachol) 80 MG tablet Take 1 (one) tablet by mouth once daily 5 03/16/20 26 Active amLODIPine (Norvasc) 2.5 MG tablet Take 1 (one) tablet by mouth once daily 5 Active Active Problems Problem Noted Date Diagnosed Date Acute blood loss anemia 01/24/2024 Hypokalemia 01/21/2024 Leukocytosis, unspecified type 01/21/2024 Acute blood loss anemia 01/21/2024 Metabolic acidosis 01/21/2024 Lactic acid acidosis 01/21/2024 Diverticulosis of colon with hemorrhage 01/21/20 Hematochezia 01/19/2024 Lower GI bleeding 01/19/2024 Rectal bleeding 01/19/2024 Chronic obstructive pulmonary disease 02/18/2021 Tendinopathy of left rotator cuff 01/22/2020 Chronic periscapular pain on left side 0 Cervical spine arthritis 01/22/2020 Skin lesion 05/12/2019 Scar 05/12/2019 Essential hypertension 03/23/2019 Patent foramen ovale 05/10/2018 Melanoma of back 09/06/2017 Hypoxia 06/17/2017 Anxiety 06/17/2017 Dyspnea on exertion 11/19/2016 Back pain 03/24/2013 Overview (03/24/2013): 03-24-2013: xrays show some degenerative changes in the back, upper back with anterior osteophytes, lower with end plate hypertrophic changes. Use rx over the weekend, if not improving by first of week, call and we can order physical therapy. History of melanoma excision 12/16/2011 History of melanoma 01/14/2011 Overview (01/14/2011): Excision and sentinel node dissection on 12/05/2010per Tu Lyman MD Decreased taste and smell 05/13/2009 Overview (04/29/2010): ENT/Kellyrszara eval 12/09/06; GI/Zhang Conrad eval 06/21/07 Lack of taste is an atypical reflux symptom. Continue Dexilant indefinitely. GERD (gastroesophageal reflux disease) 9 Overview (06/28/2009): No urease (negative)... Herminio Arzate.... 05-07-09.. Helicobacter Pylori Urease.... Achilles tendonitis 01/18/2009 Overview (09/21/2013): Followed by Ortho/ Dr. Haddad; Physical Therapy in 2008. 09-21-2013: pain in achilles: xray at [facility]: mild to moderate posterior calcaneal enthesopathy. To Dr. Powers, no incline treadmill, hold all treadmill for now. Use the relafan, pull on support, ice. DJD (degenerative joint disease), thoracolumbar 10/20/2005 Overview (05/13/2009): followed by Dr. Eugene, PMR Hyperlipidemia with target LDL less than 130 Overview (04/07/2015): Osteopenia Overview (06/26/2009): DEXA 02/05/[address] Toth L spine -0.7 Fem neck -0.7 Hip -1.0 (T11 mild crush deform, T12 mild wedge deform) DEXA 12/11/03 ([facility]) L Spine T -1.4; Fem Neck T -0.3; Tot Hip T -1.2 Benign HTN w/CKD History of adenomatous polyp of colon Overview (07/19/2014): neg colon 2008 and 07/2014, next colon 07/2019 Resolved Problems Problem Noted Date Diagnosed Date Resolved Date Anemia, unspecified type 01/21/2024 Elevated serum creatinine 01/21/2024 Chronic kidney disease, stage III 11/12/2014 08/15/2020 Overview (11/12/2014): GFRs Tortuous aorta 11/12/2014 03/27/2016 Overview (12/27/2015): CXR 03-24-13 Aortic calcification 11/12/2014 021 Overview (11/12/2014): CXR 03-24-13 Urine WBC increased 04/23/2014 02/01/20 Onychomycosis 08/15/2012 01/23/2025 Herpes labialis 08/15/2012 02/01/2024 Plantar fasciitis 05/13/2009 05/10/2018 Vitamin D deficiency 03/06/2008 025 Encounters Date Type Department Care Team Description 04/30/2025 10:00 AM SOFTBALL CORE MOLDER Office Visit [facility] - Plastic Surgery [address], [address] [place] [address] Sebastien Spencer MD Pigmented skin lesion of uncertain behavior of neck (Primary Dx) 04/30/2025 Travel 04/16/2025 Orders Only [facility] - Orthopedics [address] [place] [phone] Iggy Jc MD Chronic left-sided thoracic back pain 04/06/2025 9:30 AM SOFTBALL CORE MOLDER Office Visit [facility] - Family Medicine [address] [place] [phone] Iggy Jc MD Myalgia, other site (Primary Dx); Chronic left-sided thoracic back pain 04/06/2025 Travel 03/21/2025 Refill [facility] - Internal Med [address] [place] [phone] Himanshu Cook MD MEDICATION REFILL 03/06/2025 Telephone [facility] - Internal Med [address] [place] [phone] Himanshu Cook MD Imaging Results 03/05/2025 Orders Only [facility] - Internal Med [address] [place] [phone] Himanshu Cook MD Fall, sequela from Last 3 Months Immunizations Immunization Administration Dates Next Due INFLUENZA VACCINE, TRIV. (AF LURIA, FLUZONE TRIVALENT; 6MO+) (IIV3) 02/20/2017,05/12/2012 COVID PFIZER 12+YR 30MCG/0.3mL 03/09/2024 Covid Pfizer primary monoval ent 12+ yr 0.3mL Purple cap 08/12/2020,07/22/2020 FLU VACCINE QUAD IIV4 SPLIT 0.25 ML IM 01/29/2023 INFLUENZA A [id number] VACCINE 01/26/2016, 2,03/05/2009 INFLUENZA VACCINE 04/02/2025, 3,03/09/2023,2021,02/23/2019,01/26/2016,05/12/2012,1 INFLUENZA VACCINE, HIGH-DOSE , QUADR. (FLUZONE HIGH-DOSE QUADRIVALENT; 65Y+), 0.7 ML (HD-IIV4) 03/09/2023,03/02/2022,02/18/2021,2019,02/20/2018 INFLUENZA VACCINE, HIGH-DOSE , TRIV. (FLUZONE HIGH-DOSE TRIVALENT; 65Y+) (HD-IIV3) 04/02/2025,03/09/2024,02/23/2019,2017,02/20/2017,01/26/2016 PNEUMOCOCCAL PPSV23 05/12/2012 Pneumococcal Pcv13 Conj 01/17/2016 RSV ABRYSVO PREG OR 60y+ 0.5mL 03/10/2023 RSV AREXVY 60YR+ 0.5ML 03/09/2023 Spikevax(nucleoside Modified) 03/18/2023 TDAP (7yrs+) 09/29/2018,05/31/2008 ZOSTER VACCINE, LIVE 09/29/2011 Zoster Hzv Vacc Recombinant Inj Im 06/07/2019,,09/29/2018 Family History Medical History Relation Name Comments CAD (Coronary Artery Disease) Child Stroke Father Cancer Maternal Grandfather lung Heart Failure Mother Hypercholesterolemia Mother Hypertension Mother Relation Name Status Comments Brother Alive Child Father Maternal Grandfather Maternal Grandmother Mother Paternal Grandfather Paternal Grandmother Social History Tobacco Use Types Packs/Day Years Used Date Smoking Tobacco: Never Smokeless Tobacco: Never Tobacco Cessation:Counseling Given: Not Answered Alcohol Use Standard Drinks/Week Comments Yes 2 (1 standard drink = 0.6 oz pur e alcohol) Socially PHQ-2 Answer Date Recorded Patient Health Questionnaire-2 Score 2 03/30/2025 Comments No Sex and Gender Information Value Date Recorded Sex Assigned at Not on file Legal Sex Female 4:21 AM SOFTBALL CORE MOLDER Gender Identity Not on file Sexual Orientation Not on file Last Filed Vital Signs Vital Sign Reading Time Taken Comments Blood Pressure 146/88 04/30/2025 10:03 AM SOFTBALL CORE MOLDER Pulse 94 04/30/2025 10:03 AM SOFTBALL CORE MOLDER Temperature 36.5 C (97.7 F) 04/30/2025 10:03 AM SOFTBALL CORE MOLDER Respiratory Rate 16 07/31/2024 9:36 AM SOFTBALL CORE MOLDER Oxygen Saturation 97% 04/30/2025 10:03 AM SOFTBALL CORE MOLDER Inhaled Oxygen Concentration - - Weight 71.2 kg (157 lb) 04/30/2025 10:03 AM SOFTBALL CORE MOLDER Height 162.6 cm (5' 4) 04/30/2025 10:03 AM SOFTBALL CORE MOLDER Body Mass Index 26.95 04/30/2025 10:03 AM SOFTBALL CORE MOLDER Plan of Treatment Upcoming Encounters Date Type Department Care Team (Late st Contact Info) Description 07/26/2025 10:30 AM SOFTBALL CORE MOLDER Office Visit [facility] - Internal Med [address] [place] [address], [place] [phone] Himanshu Cook MD [address] [place] [address] DIV OF [facility] [place] [address] Health Maintenance Due Date Last Done Comments COVID-19 VACCINE (2024- season) 2025 03/09/2024, 03/18/2023, 08/12/2020, Additional history exists MEDICARE AWV 12 MONTHS 01/23/2026 01/23/2025, 09/09/2023, 09/01/2022, Additional history exists DTAP/TDAP/TD VACCINES (3 - Td or Tdap) 09/29/2028 09/29/2018, 05/31/2008 PNEUMOCOCCAL VACCINE 50+ Completed 01/17/2016, 04/30 ZOSTER VACCINE Completed 06/07/2019, 03/01, 09/29/2018, Additional history exists BONE DENSITY TESTING Discontinued 10/29/2022, 03/15/2019 (Done Outside Per Report), 06/24/2015, Additional history exists Respiratory Syncytial Virus (RSV) Vaccine Pt: or over 60 yrs Completed 03/10/2023, 03/09/2023 DEPRESSION SCREENING Completed 07/25/2024, 07/29/2023, 09/01/2022, Additional history exists INFLUENZA VACCINE Completed 04/02/2025, , 03/09/2024, Additional history exists HEPATITIS B VACCINE Aged Out No longe r eligible based on patient's age to complete this topic HIB VACCINE Aged Out No longer eligi ble based on patient's age to complete this topic HPV VACCINE Aged Out No longer eligi ble based on patient's age to complete this topic MENINGOCOCCAL (Group B) VACCINE SHARED DECISION-MAKING Aged Out No longer eligible based on patient's age to complete this topic MENINGOCOCCAL GROUPS A/C/Y/W VACCINE Aged Out No longer eligible based on patient's age to complete this topic Goals Goal Patient Goal Type Associated Problems Recent Progress Patient-Stated? Author Blood Pressure < 140/90 Blood Pressure 146/88(2024 10:03 AM SOFTBALL CORE MOLDER) Deb Padron Procedures Procedure Name Priority Date/Time Associated Diagnosis Comments OH INJECTION SINGLE/SUPERVISOR PERSONNEL CLERKS TRIGGER POINT 1/2 MUSCLES Routine 04/06/2025 9:25 AM SOFTBALL CORE MOLDER Myalgia, other site Chronic left-sided thoracic back pain IMAGING/RADIOLOGY/X RAY RESULTS ORDER 03/05/2025 DEXA BONE DENSITY AXIAL SKELETON Routine 10/29/2022 11:15 AM CDT Postmenopausal estrogen deficiency from Last 3 Months or Most Recently Relevant to Health Maintenance Results * OH INJECTION SINGLE/SUPERVISOR PERSONNEL CLERKS TRIGGER POINT 1/2 MUSCLES (04/06/2025 9:25 AM SOFTBALL CORE MOLDER) Narrative Iggy Jc MD - 04/06/2025 9:25 AM SOFTBALL CORE MOLDER Iggy Jc MD 04/06/2025 12:04 PM Enedina is here today for trigger point injections. With her consent, 2 mL of 1:1 Lidocaine 1%/NaCL was injected into the left thoracic region for a total of 3 trigger points. Patient tolerated this well. Follow up as directed. us Iggy Jc MD PROCEDURE/MINOR SURGICAL O RDERABLES Final Result * IMAGING/RADIOLOGY/XRAY RESULTS ORDER (03/05/2025) Anatomical Region Laterality Modality Other 03/05/2025 Narrative 03/05/2025 Ordered by an unspecified provider. us Scanned Document IMAGING Final Result * BONE DENSITY AXIAL SKELETON(1OR MORE SITES)[id number] (10/29/2022 11:15 AM CDT) Anatomical Region Laterality Modality Other 10/29/2022 3:55 PM CDT Narrative 10/29/2022 4:52 PM CDT PROCEDURE: DEXA BONE DENSITY AXIAL SKELETON DATE/TIME OF EXAM: 10/29/2022 11:19 AM CLINICAL INFORMATION: None relevant/not provided if blank. Indication: Z78.0: Postmenopausal estrogen deficiency COMPARISON: None. LUMBAR SPINE (L1-L4): Bone mineral density (g/cm2): 1.060 Current T-score: 0.1 LEFT FEMORAL NECK: Bone mineral density (g/cm2): 0.760 Current T-score: -0.8 BONE DENSITY ASSESSMENT: WHO Category: Normal. FRAX reported because: All T-scores for spine total, hip total, femoral neck, at or above -1.0. Please see the PACS images for additional details. World Health Organization definitions of standard deviations relative to the mean T-score: Normal bone density = -1.0 and above Osteopenia = between -1.0 and -2.5 Osteoporosis = -2.5 and below > Dictated by Rafa Betancur MD ([employer] Principal) 10/29/2022 3:55 PM IMarkel DO have personally reviewed and interpreted this examination/study. > Interpreting Provider: Markel Lopez DO on 10/29/2022 4:52 PM Procedure Note Markel Lopez DO - 10/29/2022 PROCEDURE: DEXA BONE DENSITY AXIAL SKELETON DATE/TIME OF EXAM: 10/29/2022 11:19 AM CLINICAL INFORMATION: None relevant/not provided if blank. Indication: Z78.0: Postmenopausal estrogen deficiency COMPARISON: None. LUMBAR SPINE (L1-L4): Bone mineral density (g/cm2): 1.060 Current T-score: 0.1 LEFT FEMORAL NECK: Bone mineral density (g/cm2): 0.760 Current T-score: -0.8 BONE DENSITY ASSESSMENT: WHO Category: Normal. FRAX reported because: All T-scores for spine total, hip total, femoral neck, at or above -1.0. Please see the PACS images for additional details. World Health Organization definitions of standard deviations relative to the mean T-score: Normal bone density = -1.0 and above Osteopenia = between -1.0 and -2.5 Osteoporosis = -2.5 and below > Dictated by Rafa Betancur MD ([employer] Principal) 10/29/2022 3:55 PM IMarkel DO have personally reviewed and interpreted this examination/study. > Interpreting Provider: Markel Lopez DO on 10/29/2022 4:52 PM Himanshu Cook MD DEXA ORDERABLES Final Res ult from Last 3 Months or Most Recently Relevant to Health Maintenance Insurance MEDICARE [facility] MEDICARE Advance Directives * Full Code (Latest Code Status on File) Date Activated Date Inactivated Comments 01/21/2024 5:58 AM 01/22/2024 4:51 PM Care Teams Car Sales Associate Relationship Specialty Start Date End Date Himanshu Cook MD [address] [place] [address] PCP - General Internal Medicine 01/19/24 [place] [address] [facility] [address] [address] Obstetrics and Gynecology 11/23/13 [place] [address] [facility] [address] [address] Physician Cardiovascular Disease 11/23/18 [place] [address] [facility] [address] [address] Physician Internal Medicine 11/23/18 [place] [address] [facility] [address] [address] Physician Dermatology 11/23/18 [place] [address] [facility] [address] [address] Physician General Surgery 11/23/18
--- OUTSIDE RECORDS SUMMARY | 2025-05-17 11:50 | XMS_ITS | Encounter Summary ---
Author Organization [facility] Address [address] [place] [address] Care Team Providers Care Dental Nurse Name Role Phone Edy Campos MD Primary Care Provider Unavailab le Encounter Details Date Type Department Care Team (Late st Contact Info) Description 01/06/2002 Outpatient Historical [facility] Edy Carlson MD NO ADDRESS ON FILE BENIGN NEOPLASM LG BOWEL (Primary Dx) Social History Tobacco Use Types Packs/Day Years Used Date Smoking Tobacco: Never Assessed Comments Unknown Sex and Gender Information Value Date Recorded Sex Assigned at Not on file Legal Sex Female 4:24 AM PROFESSOR OF ENVIRONMENTAL SCIENCE Gender Identity Not on file Sexual Orientation Not on file documented as of this encounter Plan of Treatment Not on file documented as of this encounter Visit Diagnoses Diagnosis Benign neoplasm of colon- Primary documented in this encounter Care Teams Dental Nurse Relationship Specialty Start Date End Date Edy Campos MD PCP - General 05/16/15 documented as of this encounter
--- OUTSIDE RECORDS SUMMARY | 2025-05-17 11:50 | XMS_ITS | Encounter Summary ---
Author Organization [facility] Address [address] [place] [address] Phone Care Team Providers Care Billposting Supervisor Name Role Phone Kaveh Washburn MD Primary Care Provider [phone] Himanshu Cook MD Primary Care Provider [phone] Encounter Details Date Type Department Care Team (Latest Contact Info) Description 08/09/2017 Orders Only [facility] Scanning, Provider Social History Tobacco Use Types Packs/Day Years Used Date Smoking Tobacco: Never Alcohol Use Standard Drinks/Week Comments Yes 0 (1 standard drink = 0.6 oz pur e alcohol) Comments Unknown Sex and Gender Information Value Date Recorded Sex Assigned at Not on file Legal Sex Female 3:33 AM MASTIC FLOOR LAYER Gender Identity Female 09/09/2023 8:36 PM CDT Sexual Orientation Not on file documented as of this encounter Plan of Treatment Not on file documented as of this encounter Procedures Procedure Name Priority Date/Time Associated Diagnosis Comments SCAN - RADIOLOGY/IMAGING 08/09/2017 documented in this encounter Results * SCAN - RADIOLOGY/IMAGING (08/09/2017) Anatomical Region Laterality Modality Other us Provider Scanning Final Result documented in this encounter Visit Diagnoses Not on filedocumented in this encounter Care Teams Billposting Supervisor Relationship Specialty Start Date End Date Kaveh Washburn MD PCP - General 07/20/14 04/26/18 Himanshu Cook MD [address] [address] PCP - General Internal Medicine 04/27/18 documented as of this encounter
--- OUTSIDE RECORDS SUMMARY | 2025-05-17 11:50 | XMS_ITS | Encounter Summary ---
Author Organization [facility] Address [address] [facility] Attn: Epic Prelude ADT [place] [address] Care Team Providers Care Truck Sales Manager Name Role Phone Edy Campos MD Primary Care Provider Unavailab le Encounter Details Date Type Department Care Team (Late st Contact Info) Description 02/23/1990 Outpatient Historical Stephen Freedman MD NO ADDRESS ON FILE Social History Tobacco Use Types Packs/Day Years Used Date Smoking Tobacco: Never Assessed Comments Unknown Sex and Gender Information Value Date Recorded Sex Assigned at Not on file Legal Sex Female 4:24 AM LITIGATION COORDINATOR Gender Identity Not on file Sexual Orientation Not on file documented as of this encounter Plan of Treatment Not on file documented as of this encounter Visit Diagnoses Not on filedocumented in this encounter Care Teams Truck Sales Manager Relationship Specialty Start Date End Date Edy Campos MD PCP - General 05/16/15 documented as of this encounter
--- OUTSIDE RECORDS SUMMARY | 2025-05-17 11:50 | XMS_ITS | Encounter Summary ---
Author Organization [facility] Address [address] [facility] [place] [address] Care Team Providers Care Herb Grower Name Role Phone Osei Toth MD Unavailable [phone] Jian Srivastava MD Unavailable [phone] Edy Zavaleta MD Unavailable [phone] Kalie Davis MD Unavailable [phone] Tu Lyman MD Unavailable Himanshu Cook MD Primary Care Provider [phone] Reason for Visit * Reason Onset Date Comments MEDICATION REFILL 03/22/2025 Encounter Details Date Type Department Care Team (Late st Contact Info) Description 03/21/2025 Refill [facility] - Internal Med [address] [place] [address], [place] [id number] Himanshu Coko MD [address] [place] [address] [address] DIV OF [facility] INTERNAL MEDICINE [place], [place] [id number] MEDICATION REFILL Social History Tobacco Use Types Packs/Day Years Used Date Smoking Tobacco: Never Smokeless Tobacco: Never Alcohol Use Standard Drinks/Week Comments Yes 2 (1 standard drink = 0.6 oz pur e alcohol) Socially PHQ-2 Answer Date Recorded Patient Health Questionnaire-2 Score 0 02/01/2025 Comments No Sex and Gender Information Value Date Recorded Sex Assigned at Not on file Legal Sex Female 4:21 AM MEDIA ACCOUNT EXECUTIVE Gender Identity Not on file Sexual Orientation Not on file documented as of this encounter Functional Status * Is person deaf or have serious hearing difficulty? Answer Date of Assessment Author No 01/21/2024 12:05 PM Olvera RN * Is person blind or have serious difficulty seeing? Answer Date of Assessment Author No 01/21/2024 12:05 PM BRIANT Sánchez RN * Does person have serious difficulty walking/climbing stairs? Answer Date of Assessment Author No 01/21/2024 12:05 PM BRIANT Sánchez RN * Does person have difficulty dressing/bathing? Answer Date of Assessment Author No 01/21/2024 12:05 PM Olvera RN * Does person have difficulty doing errands alone? Answer Date of Assessment Author No 01/21/2024 12:05 PM Olvera RN documented as of this encounter Mental Status * Does person have difficulty concentrating/remembering/making decisions? Answer Entry Date Author No 01/21/2024 12:05 PM Olvera RN documented in this encounter Miscellaneous Notes * Telephone Encounter - Betsey Mayes RN - 03/22/2025 8:31 AM CDT Patient comment: Could you please allow three refills without me having to bother you. I feel another cold sore voming on and do not want to continue bother you. Also, are you in agreement with the changes the new parish visitor has made - 81 mg aspirin, 2.5 amlodipine, eliminate Losartan and replacewith 80 mg Pravastatin? Thank uou. Refill Request Enedina Thomas Recent Visits Date Type Provider Dept 01/23/25 Office Visit Himanshu Cook MD [facility] 07/25/24 Office Visit Himanshu Cook MD [facility] 03/14/24 Office Visit Himanshu Cook MD [facility] 02/01/24 Office Visit Himanshu Cook MD [facility] 2l 01/19/24 Office Visit Migue Mcbride MD [facility] 2l Showing recent visits within past 540 days with a meds authorizing provider and meeting all other requirements Future Appointments Date Type Provider Dept 07/26/25 Appointment Himanshu Cook MD [facility] 2l Showing future appointments within next 150 days with a meds authorizing provider and meeting all other requirements Last Refill: 02/26/25 Allergies: Allergies[1] Pended Medication Order: Requested Prescriptions Pending Prescriptions Disp Refills valACYclovir (Valtrex) 1 GM tablet 4 tablet 0 Sig: Take 2 (two) tablets by mouth every 12 hours for 2 doses [1] Allergies Allergen Reactions Cephalexin Diarrhea and Other Loose stools, lethargy reported by pt documented in this encounter Plan of Treatment Upcoming Encounters Date Type Department Care Team (Late st Contact Info) Description 07/26/2025 10:30 AM MEDIA ACCOUNT EXECUTIVE Office Visit [facility] - Internal Med [address] [place] [address], [facility] [place] [address] Himanshu Cook MD [address] [place] [address] [address] [facility] OF [facility] [place] [address] documented as of this encounter Goals Goal Patient Goal Type Associated Problems Recent Progress Patient-Stated? Author Blood Pressure < 140/90 Blood Pressure 146/88(2024 10:03 AM MEDIA ACCOUNT EXECUTIVE) Deb Padron documented as of this encounter Visit Diagnoses Not on filedocumented in this encounter Care Teams Herb Grower Relationship Specialty Start Date End Date Himanshu Coko MD [address] [place] [address] [address] [facility] [place] [address] PCP - General Internal Medicine 01/19/24 Osei Toth MD [address] [place] [id number] Obstetrics and Gynecology 11/23/13 [place] [address] [facility] [address] [place] [address] Physician Cardiovascular Disease 11/23/18 [place] [address] [facility] [address] [place] [address] Physician Internal Medicine 11/23/18 [place] [address] [facility] [address] [address] Physician Dermatology 11/23/18 [place] [id number] [facility] [address] [place] [address] Physician General Surgery 11/23/18 documented as of this encounter
--- OUTSIDE RECORDS SUMMARY | 2025-05-17 11:50 | XMS_ITS | Encounter Summary ---
Author Organization [facility] Address [address] [place] [address] Phone Care Team Providers Care Test Development Engineer Name Role Phone Kaveh Washburn MD Primary Care Provider [phone] Himanshu Cook MD Primary Care Provider [phone] Encounter Details Date Type Department Care Team (Latest Contact Info) Description 06/24/2015 Orders Only [facility] Scanning, Provider Social History Tobacco Use Types Packs/Day Years Used Date Smoking Tobacco: Never Alcohol Use Standard Drinks/Week Comments Yes 0 (1 standard drink = 0.6 oz pur e alcohol) Comments Unknown Sex and Gender Information Value Date Recorded Sex Assigned at Not on file 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 Gender Identity Female 09/09/2023 8:36 PM CDT Sexual Orientation Not on file documented as of this encounter Plan of Treatment Not on file documented as of this encounter Procedures Procedure Name Priority Date/Time Associated Diagnosis Comments CARDIOLOGY DOCUMENT SCAN 06/24/2015 documented in this encounter Results * SCAN - CARDIOLOGY (06/24/2015) Anatomical Region Laterality Modality Other us Provider Scanning CV CARDIAC SERVICES PROCEDURES Final Result documented in this encounter Visit Diagnoses Not on filedocumented in this encounter Care Teams Test Development Engineer Relationship Specialty Start Date End Date Kaveh Washburn MD PCP - General 07/20/14 04/26/18 Himanshu Cook MD [address] [address] PCP - General Internal Medicine 04/27/18 documented as of this encounter
== END 2025-05-17 10:41 | disposition home or self-care (01) ==
DX: M19.071 Primary osteoarthritis, right ankle and foot (principal); Z98.890 Other specified postprocedural states
CPT/HCPCS: 73700